=== PATIENT | female | born 1960 | race Caucasian/White ===

== ENCOUNTER 2024-03-28 10:26 | Day surgery (SDC) | payer MEDICARE ==
[2024-03-27 12:06] VITALS: BMI 26.9
[2024-03-28] MEDS ORDERED: Lidocaine 2% PF 5 ML VIAL ONE (11:06)
[2024-03-28] MEDS ORDERED: Bupivacaine PF 0.5% 30 ML VIAL ONE (11:06)
[2024-03-28] MEDS ORDERED: SUGAMMADEX SODIUM 200 MG/2 ML VIAL ONE (13:23)
[2024-03-28] MEDS ORDERED: Ketorolac Tromethamine 30 MG (1 mL) VIAL ONE (13:41)
== END 2024-03-28 14:40 | disposition home or self-care (01) ==
LOC: CSHSDC 10:26
PROVIDERS: ATTEND Podiatrist Foot & Ankle Surgery
PROC: 0SRQ0JZ Replacement of Left Toe Phalangeal Joint with Synthetic Substitute, Open Approach (ICD-10-PCS; principal; 2024-03-28)
PROC: 0SRP0JZ Replacement of Right Toe Phalangeal Joint with Synthetic Substitute, Open Approach (ICD-10-PCS; 2024-03-28)
DX: M20.41 Other hammer toe(s) (acquired), right foot (principal); M20.42 Other hammer toe(s) (acquired), left foot; I10 Essential (primary) hypertension; E78.00 Pure hypercholesterolemia, unspecified; Z98.51 Tubal ligation status; Z87.891 Personal history of nicotine dependence; Z90.49 Acquired absence of other specified parts of digestive tract; Z88.2 Allergy status to sulfonamides; Z88.5 Allergy status to narcotic agent; Z79.899 Other long term (current) drug therapy
CPT/HCPCS: 28286; 93005; J0665; J1885; 93010